=== PATIENT | male | born 1935 | race African-American/Black ===

== ENCOUNTER 2018-05-22 18:43 | Inpatient (IN) ==
[2018-05-22 19:34] LABS: Basophils % 0.6 % (0.0-0.8); Eosinophils # 0.2 10*3/uL (0.0-0.87); Eosinophils % 2.3 % (0.00-10.9); Hematocrit 36.3 VOL% (42.0-52.0); Immature Granulocytes % 0.3 %; Immature Granulocytes Absolute 0.02 #; Lymphocytes # 1.3 10*3/uL (1.4-4.0); Mean Corpuscular HGB Conc 33.1 GM/DL (32-36); Mean Corpuscular Hemoglobin 30 PG (27-34); Mean Corpuscular Volume 89.6 FL (87-102); Mean Platelet Volume 10.8 FL (9.6-12.0); Monocytes # 0.6 10*3/uL (0.11-0.8); Monocytes % 8.5 % (1.7-12.7); Neutrophils # 4.9 10*3/uL (1.4-7.4); Neutrophils % 70.3 % (38.7-73.9); Platelet Count 216 T/CUMM (130-400); Red Blood Count 4.05 MC/CUMM (3.8-5.5); Red Cell Distribution Width 14.3 % (9.3-17.3); White Blood Count 6.9 T/CUMM (4-12)
[2018-05-22 19:57] LABS: Albumin 3.8 G/DL (3.4-5.0); Bilirubin,Total 0.6 MG/DL (0.2-1.0); Calcium 8.8 MG/DL (8.5-10.1); Total Protein 7.3 G/DL (6.4-8.3)
[2018-05-22 19:58] LABS: Osmolality,Calculated 286.1 MOS/KG (273-304); Potassium 3.7 MMOL/L (3.5-5.1)
[2018-05-22] MEDS ORDERED: hydrALAZINE 20 MG/1 ML VIAL IV STA (20:32)
[2018-05-22 20:46] LABS: PT Patient Result 10.6 SECS
[2018-05-23] MEDS ORDERED: ONDANSETRON 4 MG/2 ML VIAL IV PRN (00:18)
[2018-05-23] MEDS ORDERED: DOCUSATE SODIUM 100 MG CAPSULE PO PRN (00:18)
[2018-05-23] MEDS ORDERED: LABETALOL 20 MG/4 ML SYRINGE IV PRN (00:26)
[2018-05-23] MEDS: SODIUM CHLORIDE 0.9% 1,000 ML IV SCH ×2 (00:57→20:09)
[2018-05-23] MEDS ORDERED: hydrALAZINE 20 MG/1 ML VIAL IV PRN (01:47)
[2018-05-23 02:00] LABS: Risk Ratio 2.56; VLDL CHOLESTEROL 10.6 MG/DL
[2018-05-23 07:22] LABS: Calcium 8.3 MG/DL (8.5-10.1); Potassium 3.3 MMOL/L (3.5-5.1)
[2018-05-23 07:36] LABS: Troponin I 0.131 NG/ML (0.00-0.045)
[2018-05-23] MEDS ORDERED: D3 PO SCH (09:00)
[2018-05-23] MEDS ORDERED: TAMSULOSIN 0.4 MG CAPSULE PO SCH (09:00)
[2018-05-23] MEDS ORDERED: [UNRECOGNIZED DRUG - OTHER] PO SCH (09:00)
[2018-05-23] MEDS ORDERED: DHA PO SCH (09:00)
[2018-05-23] MEDS ORDERED: EPA PO SCH (09:00)
[2018-05-23] MEDS ORDERED: COD LIVER OIL PO SCH (09:00)
[2018-05-23 09:04] LABS: Basophils % 0.4 % (0.0-0.8); Eosinophils # 0.1 10*3/uL (0.0-0.87); Eosinophils % 1.8 % (0.00-10.9); Hematocrit 33.3 VOL% (42.0-52.0); Hemoglobin 10.9 GM/DL (14.0-18.0); Immature Granulocytes % 0.1 %; Immature Granulocytes Absolute 0.01 #; Lymphocytes # 1.2 10*3/uL (1.4-4.0); Lymphocytes % 16.5 % (21.2-54.2); Mean Corpuscular HGB Conc 32.7 GM/DL (32-36); Mean Corpuscular Hemoglobin 29 PG (27-34); Mean Corpuscular Volume 89.5 FL (87-102); Mean Platelet Volume 11.4 FL (9.6-12.0); Monocytes # 0.7 10*3/uL (0.11-0.8); Monocytes % 9.3 % (1.7-12.7); Neutrophils # 5.1 10*3/uL (1.4-7.4); Neutrophils % 71.9 % (38.7-73.9); Platelet Count 201 T/CUMM (130-400); Red Blood Count 3.72 MC/CUMM (3.8-5.5); Red Cell Distribution Width 14.5 % (9.3-17.3); White Blood Count 7.1 T/CUMM (4-12)
[2018-05-23] MEDS: hydrALAZINE 25 MG TABLET PO SCH ×3 (11:34→17:27)
[2018-05-23] MEDS: ASPIRIN EC 81 MG TABLET PO SCH (11:34)
[2018-05-23] MEDS: CHOLECALCIFEROL 5,000 UNIT TABLET PO SCH (11:35)
[2018-05-23] MEDS: LOSARTAN 50 MG TABLET PO SCH (11:35)
[2018-05-23] MEDS: PANTOPRAZOLE 40 MG TABLET PO SCH (11:36)
[2018-05-23] MEDS: POTASSIUM CHLORIDE 20 MEQ PACK PO SCH (11:36)
[2018-05-23 14:25] LABS: Troponin I 0.156 NG/ML (0.00-0.045)
[2018-05-23] MEDS ORDERED: POTASSIUM CHLORIDE 20 MEQ TABLET PO ONE (16:20)
[2018-05-23] MEDS: TAMSULOSIN 0.4 MG CAPSULE PO SCH (17:28)
[2018-05-23 19:08] LABS: Troponin I 0.144 NG/ML (0.00-0.045)
[2018-05-23] MEDS: APIXABAN 5 MG TABLET PO SCH (20:07)
[2018-05-23] MEDS: SIMVASTATIN 40 MG TABLET PO SCH (20:08)
[2018-05-24 06:26] LABS: Calcium 8.5 MG/DL (8.5-10.1); Osmolality,Calculated 283.1 MOS/KG (273-304); Potassium 3.7 MMOL/L (3.5-5.1)
[2018-05-24] MEDS: ASPIRIN EC 81 MG TABLET PO SCH (09:21)
[2018-05-24] MEDS: hydrALAZINE 25 MG TABLET PO SCH ×3 (09:21→17:11)
[2018-05-24] MEDS: APIXABAN 5 MG TABLET PO SCH (09:21)
[2018-05-24] MEDS: POTASSIUM CHLORIDE 20 MEQ PACK PO SCH (09:21)
[2018-05-24] MEDS: CHOLECALCIFEROL 5,000 UNIT TABLET PO SCH (09:21)
[2018-05-24] MEDS: LOSARTAN 50 MG TABLET PO SCH (09:21)
[2018-05-24] MEDS: PANTOPRAZOLE 40 MG TABLET PO SCH (09:22)
[2018-05-24] MEDS: SODIUM CHLORIDE 0.9% 1,000 ML IV SCH (14:18)
[2018-05-24] MEDS: TAMSULOSIN 0.4 MG CAPSULE PO SCH (17:11)
[2018-05-24] MEDS: SIMVASTATIN 40 MG TABLET PO SCH (20:12)
[2018-05-24] MEDS ORDERED: APIXABAN 5 MG TABLET PO SCH (21:00)
[2018-05-25] MEDS ORDERED: ceFAZolin 1,000 MG in SYRINGE 1 EACH IV ONE (07:00)
[2018-05-25] MEDS ORDERED: DIAZEPAM 5 MG TABLET PO ONE (07:00)
[2018-05-25] MEDS ORDERED: diphenhydrAMINE CAP 25 MG CAPSULE PO ONE (07:00)
[2018-05-25 07:17] LABS: Basophils % 0.4 % (0.0-0.8); Eosinophils # 0.1 10*3/uL (0.0-0.87); Eosinophils % 1.9 % (0.00-10.9); Hematocrit 32.2 VOL% (42.0-52.0); Hemoglobin 10.6 GM/DL (14.0-18.0); Immature Granulocytes % 0.6 %; Immature Granulocytes Absolute 0.04 #; Lymphocytes # 1.2 10*3/uL (1.4-4.0); Mean Corpuscular HGB Conc 32.9 GM/DL (32-36); Mean Corpuscular Hemoglobin 30 PG (27-34); Mean Corpuscular Volume 90.2 FL (87-102); Monocytes # 0.8 10*3/uL (0.11-0.8); Monocytes % 10.6 % (1.7-12.7); Neutrophils # 5.1 10*3/uL (1.4-7.4); Neutrophils % 70.5 % (38.7-73.9); Platelet Count 175 T/CUMM (130-400); Red Blood Count 3.57 MC/CUMM (3.8-5.5); Red Cell Distribution Width 14.4 % (9.3-17.3); White Blood Count 7.3 T/CUMM (4-12)
[2018-05-25 07:44] LABS: Calcium 8.1 MG/DL (8.5-10.1); Osmolality,Calculated 279.4 MOS/KG (273-304); Potassium 3.7 MMOL/L (3.5-5.1)
[2018-05-25] MEDS: CHOLECALCIFEROL 5,000 UNIT TABLET PO SCH (09:40)
[2018-05-25] MEDS: LOSARTAN 50 MG TABLET PO SCH (09:40)
[2018-05-25] MEDS: PANTOPRAZOLE 40 MG TABLET PO SCH (09:40)
[2018-05-25] MEDS: ASPIRIN EC 81 MG TABLET PO SCH (09:40)
[2018-05-25] MEDS: POTASSIUM CHLORIDE 20 MEQ PACK PO SCH (09:40)
[2018-05-25] MEDS: hydrALAZINE 25 MG TABLET PO SCH ×3 (09:44→18:15)
[2018-05-25] MEDS ORDERED: HYDROmorphone 2 MG/1 ML VIAL ONE (13:01)
[2018-05-25] MEDS ORDERED: LIDOCAINE 1% 20 ML VIAL ONE (13:01)
[2018-05-25] MEDS ORDERED: MIDAZOLAM 2 MG/2 ML VIAL ONE (13:02)
[2018-05-25] MEDS ORDERED: ceFAZolin 1,000 MG VIAL ONE (13:02)
[2018-05-25] MEDS ORDERED: HEPARIN/NACL 0.9% 2 UNITS/ML 500 ML IV ONE (13:03)
[2018-05-25] MEDS ORDERED: LIDOCAINE 1%/EPI INJ 20 ML VIAL ONE ×2 (13:19→13:20)
[2018-05-25] MEDS ORDERED: TISSUE ADHESIVE 1 EACH APPLICATOR TOP ONE (13:25)
[2018-05-25] MEDS: SODIUM CHLORIDE 0.9% 1,000 ML IV SCH (16:50)
[2018-05-25] MEDS: TAMSULOSIN 0.4 MG CAPSULE PO SCH (18:15)
[2018-05-25] MEDS: SIMVASTATIN 40 MG TABLET PO SCH (21:07)
[2018-05-25] MEDS: ACETAMINOPHEN 325 MG TABLET PO PRN (22:34)
[2018-05-26] MEDS: ACETAMINOPHEN 325 MG TABLET PO PRN (03:04)
[2018-05-26 06:47] LABS: Basophils % 0.4 % (0.0-0.8); Eosinophils # 0.2 10*3/uL (0.0-0.87); Eosinophils % 3.1 % (0.00-10.9); Hematocrit 32.1 VOL% (42.0-52.0); Hemoglobin 10.7 GM/DL (14.0-18.0); Immature Granulocytes % 0.3 %; Immature Granulocytes Absolute 0.02 #; Lymphocytes % 12.6 % (21.2-54.2); Mean Corpuscular HGB Conc 33.3 GM/DL (32-36); Mean Corpuscular Hemoglobin 30 PG (27-34); Mean Corpuscular Volume 89.2 FL (87-102); Mean Platelet Volume 10.8 FL (9.6-12.0); Monocytes # 0.8 10*3/uL (0.11-0.8); Monocytes % 10.5 % (1.7-12.7); Neutrophils # 5.5 10*3/uL (1.4-7.4); Neutrophils % 73.1 % (38.7-73.9); Platelet Count 176 T/CUMM (130-400); Red Cell Distribution Width 14.1 % (9.3-17.3); White Blood Count 7.5 T/CUMM (4-12)
[2018-05-26 07:13] LABS: Calcium 8.3 MG/DL (8.5-10.1); Osmolality,Calculated 277.5 MOS/KG (273-304); Potassium 3.7 MMOL/L (3.5-5.1)
[2018-05-26] MEDS ORDERED: amLODIPine 10 MG TABLET PO SCH (09:00)
[2018-05-26] MEDS ORDERED: APIXABAN 5 MG TABLET PO SCH (09:00)
[2018-05-26] MEDS: ASPIRIN EC 81 MG TABLET PO SCH (09:05)
[2018-05-26] MEDS: hydrALAZINE 25 MG TABLET PO SCH ×2 (09:05→13:13)
[2018-05-26] MEDS: CHOLECALCIFEROL 5,000 UNIT TABLET PO SCH (09:07)
[2018-05-26] MEDS: LOSARTAN 50 MG TABLET PO SCH (09:07)
[2018-05-26] MEDS: PANTOPRAZOLE 40 MG TABLET PO SCH (09:07)
[2018-05-26] MEDS: POTASSIUM CHLORIDE 20 MEQ PACK PO SCH (09:08)
[2018-05-26 22:21] VITALS: BP 183/77
== END 2018-05-26 16:50 | disposition home health service (06) | DRG 41 ==
LOC: N.ED 18:43 → SUATTDRO 05-23 00:18 → N.EDINP 05-23 00:18 → N.4E 05-23 01:48
PROVIDERS: ADMIT Hospitalist; ATTEND Internal Medicine